=== PATIENT | female | born 1970 | race Caucasian/White ===

== ENCOUNTER 2017-05-05 08:09 | Emergency (ER) | payer BC ==
--- NOTE | 2017-05-05 09:21 | EDM.PDOC ---
ED HPI GENERAL MEDICAL PROBLEM - General Chief Complaint: ENT Problem Stated Complaint: SINUS INFECTION? Time Seen by Provider: 05/05/17 08:30 Source of Information: Reports: Patient History Limitations: Reports: No Limitations - History of Present Illness INITIAL COMMENTS - FREE TEXT/NARRATIVE: pt is having facial pain and pain in her teeth. She also has a cough but is not raising alot of sputum. She has been dealing with resp problems for the past 2 monthes on and off. She does not think she has a fever. Onset: Gradual Duration: Day(s):, Other ( the facial pain was worse today. ) Location: Reports: Face Associated Symptoms: Reports: Cough, Other (facial pain) - Related Data Allergies Allergy/AdvReac Type Severity Reaction Status Date / Time No Known Allergies Allergy Verified 05/05/17 08:21 Home Meds: Home Meds NK [No Known Home Meds] 05/05/17 [History] Past Medical History Respiratory History: Reports: Asthma [employer]TER History: Reports: - Infectious Disease History Infectious Disease History: Reports: Chicken Pox Social & Family History - Tobacco Use Smoking Status *Q: Never Smoker - Caffeine Use Caffeine Use: Reports: Coffee - Recreational Drug Use Recreational Drug Use: No ED ROS ENT - Review of Systems Review Of Systems: See Below Constitutional: Reports: No Symptoms HEENT: Reports: Dental Pain, Sinus Problem, Throat Pain, Other (pt has felt like she has more facial pain in the left side. ) Respiratory: Reports: Cough Cardiovascular: Reports: No Symptoms Endocrine: Reports: No Symptoms GI/Abdominal: Reports: No Symptoms : Reports: No Symptoms Musculoskeletal: Reports: No Symptoms Skin: Reports: No Symptoms ED EXAM, ENT - Physical Exam Exam: See Below Text/Narrative:: pt has drainage down the back of her throat and this is stimulating a cough. She does not think she has had a fever. Exam Limited By: No Limitations General Appearance: Alert, Mild Distress Ears: Other (pt has a small amount of fluid behind the left drum. ) Nose: Normal Inspection Mouth/Throat: Other ( her throat is irritated. ) Head: Atraumatic Neck: Lymphadenopathy (R), Lymphadenopathy (L) Respiratory/Chest: No Respiratory Distress Cardiovascular: Regular Rate, Rhythm GI/Abdominal: Soft, Non-Tender Course - Vital Signs Last Recorded V/S: Last Vital Signs Temp 36.5 C 05/05/17 08:29 Pulse 81 05/05/17 08:29 Resp 18 05/05/17 08:29 BP 141/87 H 05/05/17 08:29 Pulse Ox 94 L 05/05/17 08:29 - Orders/Labs/Meds Labs: Laboratory Tests 05/05/17 05/05/17 Range/Units 08:38 09:23 WBC 8.5 (4.5-11.0) K/uL RBC 4.17 (3.30-5.50) M/uL Hgb 13.1 (12.0-15.0) g/dL Hct 38.7 (36.0-48.0) % MCV 93 (80-98) fL MCH 31 (27-31) pg MCHC 34 (32-36) % Plt Count 312 (150-400) K/uL Neut % (Auto) 61 (36-66) % Lymph % (Auto) 21 L (24-44) % [place] % (Auto) 14 H (2-6) % Eos % (Auto) 4 (2-4) % Baso % (Auto) 1 (0-1) % Monoscreen Negative (NEGATIVE) - Re-Assessments/Exams Free Text/Narrative Re-Assessment/Exam: 05/05/17 09:22 strept is neg, wbc is not elevated. Her watwers view show some cloudiness on the left side. Departure - Departure Time of Disposition: 09:22 Disposition: Home, Self-Care 01 Condition: Fair Clinical Impression: Sinusitis - Discharge Information Instructions: Sinusitis, Adult, [id number] Referrals: Rivka Hernandez PA [Primary Care Provider] - Forms: ED Department Discharge Care Plan Goals: push fluids, cool mist humidifier, augmentin 875 bid, use yogurt or probiotic when on the antibiotic.
--- NOTE | 2017-05-06 10:44 | CR ---
SINUSES: Single view [place] History: Sinus drainage and headache Findings: There is some mucosal thickening in the axillary sinuses left greater than right. No air-fl uid levels are identified. The nasal septum is minimally deviated to the right. Frontal sinuses appea r clear Impression: Suggestion of some chronic mucosal thickening in both maxillary sinuses, left greater mary n right
== END 2017-05-05 09:50 | disposition home or self-care (01) ==
LOC: JP.ED 08:09
DX: J32.9 Chronic sinusitis, unspecified (principal)
CPT/HCPCS: 36415; 85025; 86308; 87081; 87430; 99284